=== PATIENT | female | born 2000 | race Caucasian/White ===

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

== ENCOUNTER 2021-03-26 13:37 | Emergency (ER) | payer OTHER ==
[~2021-03-26] VITALS: Ht 167.6 cm; Wt 56.7 kg
== END 2021-03-26 15:32 | disposition home or self-care (01) ==
LOC: ER 13:37
DX: Z04.41 Encounter for examination and observation following alleged adult rape (principal); Z88.0 Allergy status to penicillin
CPT/HCPCS: 99283

== ENCOUNTER → 2021-06-18 | Outpatient (CLI) | payer OTHER ==
[2021-06-19 10:32] LABS: Candida species (DNA Probe) Negative (NEGATIVE); G. vaginalis (DNA Probe) Negative (NEGATIVE); T. vaginalis (DNA Probe) Negative (NEGATIVE)
== END | disposition home or self-care (01) ==
LOC: LAB SHORT 16:57 → LAB 16:57
PROVIDERS: Family Medicine
DX: N76.0 Acute vaginitis (principal)
CPT/HCPCS: 87480; 87510; 87660

== ENCOUNTER 2021-07-28 18:57 | Emergency (ER) | payer OTHER ==
[~2021-07-28] VITALS: Ht 167.6 cm; Wt 56.7 kg
== END 2021-07-28 23:03 | disposition home or self-care (01) ==
LOC: ER 18:57
DX: G43.909 Migraine, unspecified, not intractable, without status migrainosus (principal); Z88.0 Allergy status to penicillin; Z79.899 Other long term (current) drug therapy
CPT/HCPCS: 96374; 96375; 99283-25; J0780; J1200; J1885; J2405; J7030

== ENCOUNTER 2021-11-16 15:03 | Emergency (ER) | payer OTHER ==
[~2021-11-16] VITALS: Ht 167.6 cm; Wt 56.7 kg
[~2021-11-16 15:03] MED LIST changes: +ONDA4 PO
[2021-11-16 16:48] LABS: Source, Urine Clean Catch
[2021-11-16 16:59] LABS: BASOPHILS ABSOLUTE AUTO 0.03 K/mm3 (0.00-0.23); BASOPHILS PERCENT AUTO 0 % (0-2); EOSINOPHILS ABSOLUTE AUTO 0.14 K/mm3 (0.00-0.68); EOSINOPHILS PERCENT AUTO 1 % (0-6); Hematocrit 40.8 % (33.0-51.0); Hemoglobin 13.9 g/dL (11.5-16.0); IMMATURE GRAN ABSOLUTE AUTO 0.07 K/mm3 (0.00-0.10); IMMATURE GRAN PERCENT AUTO 1 % (0-1); LYMPHOCYTES ABSOLUTE AUTO 1.73 K/mm3 (0.84-5.20); LYMPHOCYTES PERCENT AUTO 13 % (21-46); MONOCYTES ABSOLUTE AUTO 1.58 K/mm3 (0.16-1.47); MONOCYTES PERCENT AUTO 12 % (4-13); Mean Corpuscular HGB Conc 34.1 g/dL (31.5-36.5); Mean Corpuscular Volume 88 fL (80-100); Mean Platelet Volume 9.9 fL (9.1-12.4); NEUTROPHILS ABSOLUTE AUTO 9.39 K/mm3 (1.96-9.15); NEUTROPHILS PERCENT AUTO 73 % (41-73); Platelet Count 261 K/mm3 (150-400); RDW Coefficient Variation 11.8 % (11.7-14.2); RDW Standard Deviation 37.8 fL (35.1-46.3); Red Blood Cell Count 4.64 M/mm3 (3.80-5.20); White Blood Cell Count 12.94 K/mm3 (4.00-11.30)
[2021-11-16 17:01] LABS: Appearance, Urine Clear (Clear); Bilirubin, Urine Neg (Neg); Blood, Urine Neg (Neg); Color, Urine Yellow (P-Yellow); Glucose Qualitative, Urine Neg (Neg); Ketones, Urine Neg (Neg); Leukocyte Esterase, Urine Neg (Neg); Nitrite, Urine Neg (Neg); Protein, Urine Neg (Neg); Urobilinogen, Urine NORM (Normal)
[2021-11-16 17:46] LABS: Alanine Aminotransfer (ALT/SGP 26 U/L (12-78); Albumin, Blood 3.9 g/dL (3.4-5.0); Albumin/Globulin Ratio 1.1 (0.8-1.8); Alk Phos 65 U/L (45-116); Anion Gap 6 mmol/L (6-16); Aspartate Aminotrans (AST/SGOT 16 U/L (12-37); Bilirubin, Total 1.1 mg/dL (0.1-1.0); Blood Urea Nitrogen 6 mg/dL (8-21); Bun/Creatinine Ratio 9.1 (12.0-20.0); CO2, Blood 24 mmol/L (21-32); Calcium, Blood 9.6 mg/dL (8.5-10.1); Chloride, Blood 105 mmol/L (98-108); Creatinine, Blood 0.66 mg/dL (0.40-1.00); Globulin, Blood 3.7 g/dL (2.2-4.0); Glomerular Filtration Rate >60 (60-); Glucose, Blood 88 mg/dL (70-99); Potassium, Blood 3.6 mmol/L (3.5-5.5); Sodium, Blood 135 mmol/L (136-145); Total Protein, Blood 7.6 g/dL (6.4-8.2)
[2021-11-16 18:49] LABS: Influenza A, PCR NEGATIVE (NEGATIVE); Influenza B, PCR NEGATIVE (NEGATIVE); Resp Syncytial Virus, PCR NEGATIVE (NEGATIVE); SARS-Cov-2 (COVID-19) PCR, MMC NEGATIVE (NEGATIVE)
[2021-11-16] MEDS ORDERED: AZIT250 PO (20:26)
[2021-11-16] MEDS ORDERED: TRAM50 PO (20:28)
== END 2021-11-16 20:58 | disposition home or self-care (01) ==
LOC: ER 15:03
PROVIDERS: Physician Assistant
DX: J18.9 Pneumonia, unspecified organism (principal); Z88.0 Allergy status to penicillin; Z88.8 Allergy status to other drugs, medicaments and biological substances; Z20.822 Contact with and (suspected) exposure to COVID-19
CPT/HCPCS: 0241U; 36415; 80053; 81003; 83690; 84145; 85025; 96374; 96375; 99284-25; A9270; J1885; J2405; J7030

== ENCOUNTER → 2022-01-14 | Outpatient (CLI) | payer OTHER ==
[~2022-01-14] MED LIST changes: +AZIT250 PO; +TRAM50 PO
[2022-01-15 09:43] LABS: BASOPHILS ABSOLUTE AUTO 0.04 K/mm3 (0.00-0.23); BASOPHILS PERCENT AUTO 1 % (0-2); EOSINOPHILS PERCENT AUTO 7 % (0-6); Hematocrit 38.4 % (33.0-51.0); Hemoglobin 12.6 g/dL (11.5-16.0); IMMATURE GRAN ABSOLUTE AUTO 0.03 K/mm3 (0.00-0.10); IMMATURE GRAN PERCENT AUTO 1 % (0-1); LYMPHOCYTES ABSOLUTE AUTO 2.62 K/mm3 (0.84-5.20); LYMPHOCYTES PERCENT AUTO 43 % (21-46); MONOCYTES ABSOLUTE AUTO 0.85 K/mm3 (0.16-1.47); MONOCYTES PERCENT AUTO 14 % (4-13); Mean Corpuscular HGB 29.9 pg (26.0-34.0); Mean Corpuscular HGB Conc 32.8 g/dL (31.5-36.5); Mean Corpuscular Volume 91 fL (80-100); Mean Platelet Volume 10.8 fL (9.1-12.4); NEUTROPHILS ABSOLUTE AUTO 2.15 K/mm3 (1.96-9.15); NEUTROPHILS PERCENT AUTO 35 % (41-73); Platelet Count 216 K/mm3 (150-400); RDW Coefficient Variation 12.4 % (11.7-14.2); RDW Standard Deviation 41.7 fL (35.1-46.3); Red Blood Cell Count 4.22 M/mm3 (3.80-5.20); White Blood Cell Count 6.09 K/mm3 (4.00-11.30)
[2022-01-15 09:54] LABS: Alanine Aminotransfer (ALT/SGP 22 U/L (12-78); Albumin, Blood 3.8 g/dL (3.4-5.0); Albumin/Globulin Ratio 1.1 (0.8-1.8); Alk Phos 51 U/L (50-136); Anion Gap 7 mmol/L (6-16); Aspartate Aminotrans (AST/SGOT 14 U/L (12-37); Bilirubin, Total 0.5 mg/dL (0.1-1.0); Blood Urea Nitrogen 10 mg/dL (8-24); Bun/Creatinine Ratio 14.7 (12.0-20.0); CO2, Blood 26 mmol/L (21-32); Calcium, Blood 8.7 mg/dL (8.5-10.1); Chloride, Blood 107 mmol/L (98-108); Creatinine, Blood 0.68 mg/dL (0.40-1.00); Globulin, Blood 3.5 g/dL (2.2-4.0); Glomerular Filtration Rate >60 (60-); Glucose, Blood 85 mg/dL (70-99); Potassium, Blood 4.4 mmol/L (3.5-5.5); Sodium, Blood 140 mmol/L (136-145); Total Protein, Blood 7.3 g/dL (6.4-8.2)
== END | disposition home or self-care (01) ==
LOC: LAB SHORT 16:30
PROVIDERS: Nurse Practitioner Family
DX: F32.9 Major depressive disorder, single episode, unspecified (principal)
CPT/HCPCS: 80053; 85025

== ENCOUNTER → 2022-02-15 | Outpatient (CLI) | payer OTHER ==
[2022-02-15 17:56] LABS: BASOPHILS ABSOLUTE AUTO 0.01 K/mm3 (0.00-0.23); BASOPHILS PERCENT AUTO 0 % (0-2); EOSINOPHILS ABSOLUTE AUTO 0.14 K/mm3 (0.00-0.68); EOSINOPHILS PERCENT AUTO 2 % (0-6); Hematocrit 41.1 % (33.0-51.0); Hemoglobin 13.8 g/dL (11.5-16.0); IMMATURE GRAN ABSOLUTE AUTO 0.02 K/mm3 (0.00-0.10); IMMATURE GRAN PERCENT AUTO 0 % (0-1); LYMPHOCYTES ABSOLUTE AUTO 2.66 K/mm3 (0.84-5.20); LYMPHOCYTES PERCENT AUTO 36 % (21-46); MONOCYTES ABSOLUTE AUTO 0.67 K/mm3 (0.16-1.47); MONOCYTES PERCENT AUTO 9 % (4-13); Mean Corpuscular HGB 30.4 pg (26.0-34.0); Mean Corpuscular HGB Conc 33.6 g/dL (31.5-36.5); Mean Corpuscular Volume 91 fL (80-100); Mean Platelet Volume 9.9 fL (9.1-12.4); NEUTROPHILS ABSOLUTE AUTO 3.81 K/mm3 (1.96-9.15); NEUTROPHILS PERCENT AUTO 52 % (41-73); Platelet Count 260 K/mm3 (150-400); RDW Coefficient Variation 11.9 % (11.7-14.2); RDW Standard Deviation 39.3 fL (35.1-46.3); Red Blood Cell Count 4.54 M/mm3 (3.80-5.20); White Blood Cell Count 7.31 K/mm3 (4.00-11.30)
[2022-02-15 18:18] LABS: Anion Gap 9 mmol/L (6-16); Blood Urea Nitrogen 10 mg/dL (8-24); Bun/Creatinine Ratio 12.7 (12.0-20.0); CO2, Blood 27 mmol/L (21-32); Calcium, Blood 9.1 mg/dL (8.5-10.1); Chloride, Blood 102 mmol/L (98-108); Creatinine, Blood 0.79 mg/dL (0.40-1.00); Glomerular Filtration Rate >60 (60-); Glucose, Blood 75 mg/dL (70-99); Potassium, Blood 3.9 mmol/L (3.5-5.5); Sodium, Blood 138 mmol/L (136-145); Thyroid Stimulating Hormone 1.206 uIU/mL (0.360-4.800)
== END | disposition home or self-care (01) ==
LOC: LAB 17:49 → LAB SHORT 17:49
PROVIDERS: Physician Assistant Surgical
DX: E86.0 Dehydration (principal); R53.83 Other fatigue
CPT/HCPCS: 80048; 84443; 85025

== ENCOUNTER → 2022-06-16 | Outpatient (CLI) | payer OTHER ==
[2022-06-19 15:11] LABS: CHLAMYDIA BY NAA Negative (Negative); GONOCOCCUS BY NAA Negative (Negative); TRICH VAG BY NAA Negative (Negative)
== END | disposition home or self-care (01) ==
LOC: LAB SHORT 15:21 → LAB 15:21
PROVIDERS: Physician Assistant Medical
DX: Z20.9 Contact with and (suspected) exposure to unspecified communicable disease (principal)
CPT/HCPCS: 87491; 87591; 87661

== ENCOUNTER → 2022-09-02 | Outpatient (CLI) | payer OTHER ==
[2022-09-03 10:59] LABS: Candida species (DNA Probe) Negative (NEGATIVE); G. vaginalis (DNA Probe) Negative (NEGATIVE); T. vaginalis (DNA Probe) Negative (NEGATIVE)
[2022-09-04 01:11] LABS: CHLAMYDIA TRACHOMATIS, NAA Negative (Negative)
== END | disposition home or self-care (01) ==
LOC: LAB SHORT 16:53 → LAB 16:53
PROVIDERS: Obstetrics & Gynecology
DX: N89.8 Other specified noninflammatory disorders of vagina (principal)
CPT/HCPCS: 87480; 87491; 87510; 87591; 87660

== ENCOUNTER → 2022-12-16 | Outpatient (CLI) | payer OTHER ==
[2022-12-17 10:13] LABS: T. vaginalis (DNA Probe) Negative (NEGATIVE)
[2022-12-17 10:14] LABS: Candida species (DNA Probe) Negative (NEGATIVE); G. vaginalis (DNA Probe) Positive (NEGATIVE)
== END | disposition home or self-care (01) ==
LOC: LAB SHORT 18:20 → LAB 18:20
PROVIDERS: Family Medicine
DX: N92.5 Other specified irregular menstruation (principal); N89.8 Other specified noninflammatory disorders of vagina
CPT/HCPCS: 84702; 87480; 87510; 87660

== ENCOUNTER → 2023-02-07 | Outpatient (CLI) | payer OTHER ==
[2023-02-07 17:32] LABS: Source, Urine Voided
[2023-02-07 19:29] LABS: Bacteria Few /hpf; Red Blood Cells, Urine 0-2 /hpf (0-2); Squamous Epithelial Cells Rare /hpf (Few); White Blood Cells, Urine 0-2 /hpf (0-5)
[2023-02-08 13:40] LABS: Candida species (DNA Probe) Negative (NEGATIVE); G. vaginalis (DNA Probe) Negative (NEGATIVE); T. vaginalis (DNA Probe) Negative (NEGATIVE)
== END | disposition home or self-care (01) ==
LOC: LAB 17:31 → LAB SHORT 17:31
PROVIDERS: Family Medicine
DX: R10.2 Pelvic and perineal pain (principal)
CPT/HCPCS: 81015; 87480; 87510; 87660

== ENCOUNTER → 2023-04-25 | Outpatient (CLI) | payer OTHER ==
[2023-04-25 19:54] LABS: Hematocrit 41.7 % (33.0-51.0); Hemoglobin 13.9 g/dL (11.5-16.0); Mean Corpuscular HGB 29.7 pg (26.0-34.0); Mean Corpuscular HGB Conc 33.3 g/dL (31.5-36.5); Mean Corpuscular Volume 89 fL (80-100); Mean Platelet Volume 10.6 fL (9.1-12.4); Platelet Count 260 K/mm3 (150-400); RDW Standard Deviation 39.2 fL (35.1-46.3); Red Blood Cell Count 4.68 M/mm3 (3.80-5.20); White Blood Cell Count 7.07 K/mm3 (4.00-11.30)
[2023-04-25 20:16] LABS: Percent Saturation 37.3 % (15.0-50.0)
[2023-04-25 20:31] LABS: Follicle Stimulating Hormone 1.9 mIU/ml; Free Thyroxine 1.01 ng/dL (0.70-1.60); Progesterone 8.79 ng/mL; Prolactin 10.1 ng/mL; Thyroid Stimulating Hormone 1.41 uIU/mL (0.360-4.800)
[2023-04-28 07:08] LABS: HIV AB/P24 AG SCREEN Non Reactive (Non Reactive)
== END | disposition home or self-care (01) ==
LOC: LAB SHORT 19:05 → LAB 19:05
PROVIDERS: Nurse Practitioner Family
DX: T14.8XXA Other injury of unspecified body region, initial encounter (principal); N92.6 Irregular menstruation, unspecified; D50.9 Iron deficiency anemia, unspecified
CPT/HCPCS: 82728; 83001; 83540; 83550; 84144; 84146; 84439; 84443; 85027; 86803; 87389

== ENCOUNTER → 2023-05-26 | Outpatient (CLI) | payer OTHER ==
[2023-05-27 11:35] LABS: T. vaginalis (DNA Probe) Negative (NEGATIVE)
[2023-05-27 11:36] LABS: Candida species (DNA Probe) Negative (NEGATIVE); G. vaginalis (DNA Probe) Negative (NEGATIVE)
== END | disposition home or self-care (01) ==
LOC: LAB SHORT 16:51 → LAB 16:51
PROVIDERS: Registered Nurse Community Health
DX: N89.8 Other specified noninflammatory disorders of vagina (principal); R30.9 Painful micturition, unspecified
CPT/HCPCS: 87077; 87086; 87186; 87480; 87510; 87660

== ENCOUNTER → 2023-06-09 | Outpatient (CLI) | payer OTHER ==
[2023-06-09 17:53] LABS: Source, Urine Clean Catch
[2023-06-09 19:44] LABS: Appearance, Urine Clear (Clear); Bilirubin, Urine Neg (Neg); Blood, Urine Neg (Neg); Color, Urine Yellow (P-Yellow); Glucose Qualitative, Urine Neg (Neg); Ketones, Urine Neg (Neg); Leukocyte Esterase, Urine Neg (Neg); Nitrite, Urine Neg (Neg); Protein, Urine Neg (Neg); Specific Gravity, Urine 1.015 (1.003-1.022); Urobilinogen, Urine NORM (Normal)
[2023-06-10 11:21] LABS: Candida species (DNA Probe) Negative (NEGATIVE); G. vaginalis (DNA Probe) Positive (NEGATIVE); T. vaginalis (DNA Probe) Negative (NEGATIVE)
== END | disposition home or self-care (01) ==
LOC: LAB 17:51 → LAB SHORT 17:51
PROVIDERS: Family Medicine
DX: N89.8 Other specified noninflammatory disorders of vagina (principal); R35.0 Frequency of micturition
CPT/HCPCS: 81003; 87086; 87480; 87510; 87660

== ENCOUNTER → 2023-07-08 | Outpatient (CLI) | payer OTHER ==
[2023-07-09 08:00] LABS: Candida species (DNA Probe) Negative (NEGATIVE); G. vaginalis (DNA Probe) Positive (NEGATIVE); T. vaginalis (DNA Probe) Negative (NEGATIVE)
== END ==
LOC: LAB SHORT 16:20 → LAB 16:20
PROVIDERS: Registered Nurse Community Health
DX: R30.0 Dysuria (principal)
CPT/HCPCS: 87086; 87480; 87510; 87660

== ENCOUNTER → 2023-08-01 | Outpatient (CLI) | payer OTHER ==
[2023-08-02 11:03] LABS: Candida species (DNA Probe) Negative (NEGATIVE); G. vaginalis (DNA Probe) Positive (NEGATIVE); T. vaginalis (DNA Probe) Negative (NEGATIVE)
== END ==
LOC: LAB 12:47 → LAB SHORT 12:47
PROVIDERS: Family Medicine
DX: R51.9 Headache, unspecified (principal)
CPT/HCPCS: 87480; 87510; 87660

== ENCOUNTER → 2023-09-27 | Outpatient (CLI) | payer OTHER | END | disposition home or self-care (01) | LOC: LAB SHORT 14:04 → LAB 14:04 | DX: Z33.1 Pregnant state, incidental (principal) | CPT/HCPCS: 84702 ==

== ENCOUNTER 2023-10-06 23:29 | Emergency (ER) | payer OTHER ==
[~2023-10-06] VITALS: Ht 167.6 cm; Wt 62.1 kg
[2023-10-07 02:21] LABS: BASOPHILS ABSOLUTE AUTO 0.04 K/mm3 (0.00-0.23); BASOPHILS PERCENT AUTO 0 % (0-2); EOSINOPHILS ABSOLUTE AUTO 0.17 K/mm3 (0.00-0.68); EOSINOPHILS PERCENT AUTO 1 % (0-6); Hematocrit 36.6 % (33.0-51.0); Hemoglobin 12.5 g/dL (11.5-16.0); IMMATURE GRAN ABSOLUTE AUTO 0.04 K/mm3 (0.00-0.10); IMMATURE GRAN PERCENT AUTO 0 % (0-1); LYMPHOCYTES ABSOLUTE AUTO 2.78 K/mm3 (0.84-5.20); LYMPHOCYTES PERCENT AUTO 22 % (21-46); MONOCYTES ABSOLUTE AUTO 1.02 K/mm3 (0.16-1.47); MONOCYTES PERCENT AUTO 8 % (4-13); Mean Corpuscular HGB 30.4 pg (26.0-34.0); Mean Corpuscular HGB Conc 34.2 g/dL (31.5-36.5); Mean Corpuscular Volume 89 fL (80-100); Mean Platelet Volume 10.1 fL (9.1-12.4); NEUTROPHILS ABSOLUTE AUTO 8.47 K/mm3 (1.96-9.15); NEUTROPHILS PERCENT AUTO 68 % (41-73); Platelet Count 216 K/mm3 (150-400); RDW Coefficient Variation 11.6 % (11.7-14.2); RDW Standard Deviation 37.1 fL (35.1-46.3); Red Blood Cell Count 4.11 M/mm3 (3.80-5.20); White Blood Cell Count 12.52 K/mm3 (4.00-11.30)
[2023-10-07 02:53] LABS: Albumin, Blood 3.9 g/dL (3.4-5.0); Albumin/Globulin Ratio 1.3 (0.8-1.8); Bilirubin, Total 0.4 mg/dL (0.1-1.0); Bun/Creatinine Ratio 10.8 (12.0-20.0); Calcium, Blood 8.7 mg/dL (8.5-10.1); Creatinine, Blood 0.65 mg/dL (0.40-1.00); Globulin, Blood 2.9 g/dL (2.2-4.0); Potassium, Blood 3.3 mmol/L (3.5-5.5); Total Protein, Blood 6.8 g/dL (6.4-8.2)
[2023-10-07 03:45] VITALS: BP 105/65
== END 2023-10-07 04:09 | disposition home or self-care (01) ==
LOC: ER 23:29
PROVIDERS: Emergency Medicine
DX: O21.0 Mild hyperemesis gravidarum (principal); O99.281 Endocrine, nutritional and metabolic diseases complicating pregnancy, first trimester; E87.6 Hypokalemia; O99.511 Diseases of the respiratory system complicating pregnancy, first trimester; J45.909 Unspecified asthma, uncomplicated; O99.351 Diseases of the nervous system complicating pregnancy, first trimester; G43.909 Migraine, unspecified, not intractable, without status migrainosus; Z3A.01 Less than 8 weeks gestation of pregnancy; Z88.0 Allergy status to penicillin
CPT/HCPCS: 80053; 83690; 85025; 96361; 96374; 99284-25; A9270; J2405; J7042

== ENCOUNTER → 2023-10-17 | Outpatient (CLI) | payer OTHER ==
[2023-10-17 18:31] LABS: Source, Urine Clean Catch
[2023-10-17 20:26] LABS: Bilirubin, Urine Neg (Neg); Blood, Urine Neg (Neg); Glucose Qualitative, Urine Neg (Neg); Ketones, Urine Neg (Neg); Leukocyte Esterase, Urine Neg (Neg); Nitrite, Urine Neg (Neg); Protein, Urine 1+ (Neg); Urobilinogen, Urine NORM (Normal)
[2023-10-17 20:33] LABS: Appearance, Urine Hazy (Clear); Color, Urine Yellow (P-Yellow)
[2023-10-17 20:34] LABS: Amorphous Heavy (0-Heavy); Bacteria Few /hpf; Red Blood Cells, Urine Not Seen /hpf (0-2); Squamous Epithelial Cells Few /hpf (Few); White Blood Cells, Urine Not Seen /hpf (0-5)
[2023-10-17 20:43] LABS: BASOPHILS ABSOLUTE AUTO 0.03 K/mm3 (0.00-0.23); BASOPHILS PERCENT AUTO 0 % (0-2); EOSINOPHILS ABSOLUTE AUTO 0.07 K/mm3 (0.00-0.68); EOSINOPHILS PERCENT AUTO 1 % (0-6); Hematocrit 40.3 % (33.0-51.0); Hemoglobin 13.8 g/dL (11.5-16.0); IMMATURE GRAN ABSOLUTE AUTO 0.02 K/mm3 (0.00-0.10); IMMATURE GRAN PERCENT AUTO 0 % (0-1); LYMPHOCYTES ABSOLUTE AUTO 1.93 K/mm3 (0.84-5.20); LYMPHOCYTES PERCENT AUTO 24 % (21-46); MONOCYTES PERCENT AUTO 9 % (4-13); Mean Corpuscular HGB 30.8 pg (26.0-34.0); Mean Corpuscular HGB Conc 34.2 g/dL (31.5-36.5); Mean Corpuscular Volume 90 fL (80-100); Mean Platelet Volume 10.1 fL (9.1-12.4); NEUTROPHILS ABSOLUTE AUTO 5.24 K/mm3 (1.96-9.15); NEUTROPHILS PERCENT AUTO 65 % (41-73); Platelet Count 251 K/mm3 (150-400); RDW Coefficient Variation 11.6 % (11.7-14.2); RDW Standard Deviation 38.1 fL (35.1-46.3); Red Blood Cell Count 4.48 M/mm3 (3.80-5.20); White Blood Cell Count 7.99 K/mm3 (4.00-11.30)
[2023-10-18 11:07] LABS: Candida species (DNA Probe) Positive (NEGATIVE); G. vaginalis (DNA Probe) Negative (NEGATIVE); T. vaginalis (DNA Probe) Negative (NEGATIVE)
[2023-10-20 19:12] LABS: HIV 1,2 COMBO ANTIGEN/ANTIBODY Negative (Negative)
[2023-10-21 09:57] LABS: HCV QNT BY NAAT (IU/ML) Not Detected; HCV QNT BY NAAT (LOG IU/ML) Not Detected; HCV QNT BY NAAT INTERP Not Detected (Not Detected)
[2023-10-21 12:44] LABS: HEPATITIS B SURFACE ANTIGEN Negative (Negative)
== END ==
LOC: LAB 18:28 → LAB SHORT 18:28
PROVIDERS: Registered Nurse Community Health
DX: Z34.91 Encounter for supervision of normal pregnancy, unspecified, first trimester (principal); Z3A.00 Weeks of gestation of pregnancy not specified; R30.9 Painful micturition, unspecified; N89.8 Other specified noninflammatory disorders of vagina
CPT/HCPCS: 81001; 84443; 85025; 86592; 86762; 86850; 86900; 86901; 87086; 87340; 87389; 87480; 87510; 87522; 87660

== ENCOUNTER → 2023-10-21 | Outpatient (CLI) | payer OTHER ==
[~2023-10-21] MED LIST changes: +IMITREX100 MG PO
== END ==
LOC: LAB 18:41 → LAB SHORT 18:41
DX: E86.0 Dehydration (principal)
CPT/HCPCS: 87086

== ENCOUNTER → 2023-10-24 | Outpatient (CLI) | payer OTHER ==
[2023-10-26 18:03] LABS: APTIMA MEDIA TYPE Urine; C. TRACHOMATIS BY TMA Negative (Negative); N. GONORRHOEAE BY TMA Negative (Negative); SPECIMEN SOURCE Urine
== END ==
LOC: LAB SHORT 11:56 → LAB 11:56 → ATC 10-25 14:02 → LAB SHORT 10-25 14:02 → ATC 10-25 22:46
PROVIDERS: Family Medicine
DX: Z34.01 Encounter for supervision of normal first pregnancy, first trimester (principal)
CPT/HCPCS: 87491; 87591

== ENCOUNTER 2023-10-25 02:32 | Day surgery (SDC) | payer OTHER ==
[~2023-10-25 02:32] MED LIST changes: -IMITREX100 MG PO
[2023-10-25 14:38] VITALS: BP 88/69
[2023-10-25] MEDS ORDERED: IMITREX100 MG PO (14:39)
== END 2023-10-25 15:37 | disposition home or self-care (01) ==
LOC: ATC 02:32
DX: O21.9 Vomiting of pregnancy, unspecified (principal)
CPT/HCPCS: 96361; 96374; J2405; J7120

== ENCOUNTER 2023-11-01 01:31 | Day surgery (SDC) | payer OTHER ==
[~2023-11-01 01:31] MED LIST changes: +IMITREX100 MG PO
[2023-11-01 14:25] VITALS: BP 106/63
--- NOTE | 2023-11-01 14:43 | NUR ---
PT WAS ONLY GIVEN 4MG OF IV ZOFRAN SHE TOOK 4MG SL AT NOON.
== END 2023-11-01 15:23 | disposition home or self-care (01) ==
LOC: ATC 01:31
DX: O21.9 Vomiting of pregnancy, unspecified (principal); Z3A.00 Weeks of gestation of pregnancy not specified
CPT/HCPCS: 96361; 96374; J2405; J7120

== ENCOUNTER 2023-11-04 00:29 | Day surgery (SDC) | payer OTHER ==
[2023-11-04 16:30] VITALS: BP 116/85
== END 2023-11-04 17:34 | disposition home or self-care (01) ==
LOC: ATC 00:29
DX: O21.9 Vomiting of pregnancy, unspecified (principal)
CPT/HCPCS: 96361; 96374; J2405; J7120

== ENCOUNTER 2023-11-06 04:07 | Day surgery (SDC) | payer OTHER ==
[2023-11-06 16:04] VITALS: BP 108/55
== END 2023-11-06 17:11 | disposition home or self-care (01) ==
LOC: ATC 04:07
DX: O21.9 Vomiting of pregnancy, unspecified (principal); Z3A.00 Weeks of gestation of pregnancy not specified; O99.519 Diseases of the respiratory system complicating pregnancy, unspecified trimester; J45.909 Unspecified asthma, uncomplicated; Z88.0 Allergy status to penicillin; Z88.8 Allergy status to other drugs, medicaments and biological substances; Z79.899 Other long term (current) drug therapy
CPT/HCPCS: 96361; 96374; J2405; J7120

== ENCOUNTER 2023-11-08 04:32 | Day surgery (SDC) | payer OTHER ==
--- NOTE | 2023-11-08 12:14 | NUR ---
NO CALL, NO SHOW. ATTEMPTED TO REACH PATIENT WITHOUT SUCCESS.
== END 2023-11-08 23:14 | disposition home or self-care (01) ==
LOC: ATC 04:32
DX: O21.9 Vomiting of pregnancy, unspecified (principal); O99.340 Other mental disorders complicating pregnancy, unspecified trimester; F32.9 Major depressive disorder, single episode, unspecified; Z79.899 Other long term (current) drug therapy

== ENCOUNTER 2023-11-12 04:42 | Day surgery (SDC) | payer OTHER ==
[2023-11-12 16:18] VITALS: BP 125/55
== END 2023-11-12 17:24 | disposition home or self-care (01) ==
LOC: ATC 04:42
DX: O21.9 Vomiting of pregnancy, unspecified (principal); Z3A.00 Weeks of gestation of pregnancy not specified
CPT/HCPCS: 96361; 96374; J2405; J7120

== ENCOUNTER 2023-11-14 03:18 | Day surgery (SDC) | payer OTHER ==
[2023-11-14 14:13] VITALS: BP 102/66
== END 2023-11-14 15:18 | disposition home or self-care (01) ==
LOC: ATC 03:18
DX: O21.9 Vomiting of pregnancy, unspecified (principal)
CPT/HCPCS: 96361; 96374; J2405; J7120

== ENCOUNTER 2023-11-18 13:28 | Day surgery (SDC) | payer OTHER ==
[2023-11-18 16:36] VITALS: BP 114/67
== END 2023-11-18 17:34 | disposition home or self-care (01) ==
LOC: ATC 13:28
DX: O21.9 Vomiting of pregnancy, unspecified (principal)
CPT/HCPCS: 96361; 96374; J2405; J7120

== ENCOUNTER 2023-11-20 05:07 | Day surgery (SDC) | payer OTHER ==
[2023-11-20 17:14] VITALS: BP 96/76
== END 2023-11-20 18:15 | disposition home or self-care (01) ==
LOC: ATC 05:07
DX: O21.9 Vomiting of pregnancy, unspecified (principal); Z3A.00 Weeks of gestation of pregnancy not specified; Z88.0 Allergy status to penicillin; Z88.8 Allergy status to other drugs, medicaments and biological substances; Z79.899 Other long term (current) drug therapy
CPT/HCPCS: 96361; 96374; J2405; J7120

== ENCOUNTER 2023-11-25 00:32 | Day surgery (SDC) | payer OTHER ==
[2023-11-25 17:04] VITALS: BP 104/66
== END 2023-11-25 18:00 | disposition home or self-care (01) ==
LOC: ATC 00:32
DX: O21.9 Vomiting of pregnancy, unspecified (principal); Z3A.00 Weeks of gestation of pregnancy not specified; Z88.0 Allergy status to penicillin
CPT/HCPCS: 96361; 96374; J2405; J7120

== ENCOUNTER 2023-11-29 02:43 | Day surgery (SDC) | payer OTHER ==
[2023-11-29 13:10] VITALS: BP 110/67
== END 2023-11-29 14:22 | disposition home or self-care (01) ==
LOC: ATC 02:43
DX: O21.9 Vomiting of pregnancy, unspecified (principal); Z3A.00 Weeks of gestation of pregnancy not specified
CPT/HCPCS: 96361; 96374; J2405; J7120

== ENCOUNTER 2023-12-03 02:02 | Day surgery (SDC) | payer OTHER ==
[2023-12-03 16:16] VITALS: BP 98/60
== END 2023-12-03 17:22 | disposition home or self-care (01) ==
LOC: ATC 02:02
DX: O21.9 Vomiting of pregnancy, unspecified (principal)
CPT/HCPCS: 96361; 96374; J2405; J7120

== ENCOUNTER 2023-12-05 01:07 | Day surgery (SDC) | payer OTHER ==
[2023-12-05 16:36] VITALS: BP 115/68
== END 2023-12-05 17:38 | disposition home or self-care (01) ==
LOC: ATC 01:07
DX: O21.9 Vomiting of pregnancy, unspecified (principal); Z3A.00 Weeks of gestation of pregnancy not specified; Z88.0 Allergy status to penicillin; Z88.8 Allergy status to other drugs, medicaments and biological substances
CPT/HCPCS: 96361; 96374; J2405; J7120

== ENCOUNTER 2023-12-07 03:52 | Day surgery (SDC) | payer OTHER ==
[2023-12-07 11:09] VITALS: BP 103/60
== END 2023-12-07 12:20 | disposition home or self-care (01) ==
LOC: ATC 03:52
DX: O21.9 Vomiting of pregnancy, unspecified (principal)
CPT/HCPCS: 96361; 96374; J2405; J7120

== ENCOUNTER 2023-12-10 02:41 | Day surgery (SDC) | payer OTHER ==
[2023-12-10 16:51] VITALS: BP 115/62
== END 2023-12-10 17:34 | disposition home or self-care (01) ==
LOC: ATC 02:41
DX: O21.9 Vomiting of pregnancy, unspecified (principal); Z3A.00 Weeks of gestation of pregnancy not specified; Z88.0 Allergy status to penicillin; Z88.8 Allergy status to other drugs, medicaments and biological substances; Z79.899 Other long term (current) drug therapy
CPT/HCPCS: 96361; 96374; J2405; J7120

== ENCOUNTER → 2023-12-12 | Outpatient (CLI) | payer OTHER | END | disposition home or self-care (01) | LOC: LAB SHORT 18:20 → LAB 18:20 | DX: N36.8 Other specified disorders of urethra (principal) | CPT/HCPCS: 87086 ==

== ENCOUNTER 2023-12-17 02:42 | Day surgery (SDC) | payer OTHER ==
[2023-12-17 16:12] VITALS: BP 100/47
== END 2023-12-17 17:18 | disposition home or self-care (01) ==
LOC: ATC 02:42
DX: O21.9 Vomiting of pregnancy, unspecified (principal); Z3A.00 Weeks of gestation of pregnancy not specified
CPT/HCPCS: 96361; 96374; J2405; J7120

== ENCOUNTER 2023-12-19 01:35 | Day surgery (SDC) | payer OTHER ==
[2023-12-19] MEDS ORDERED: Lactated Ringer's 1,000 ML IV SCH (07:00)
[2023-12-19] MEDS ORDERED: Ondansetron HCl 2 MG / ML 2ML Vial IV SCH (07:00)
[2023-12-19 13:58] VITALS: BP 99/62
== END 2023-12-19 14:50 | disposition home or self-care (01) ==
LOC: ATC 01:35
DX: O21.9 Vomiting of pregnancy, unspecified (principal); O99.891 Other specified diseases and conditions complicating pregnancy; R30.9 Painful micturition, unspecified; Z86.19 Personal history of other infectious and parasitic diseases; Z3A.00 Weeks of gestation of pregnancy not specified; Z88.0 Allergy status to penicillin; Z88.8 Allergy status to other drugs, medicaments and biological substances
CPT/HCPCS: 87086; 87480; 87510; 87660; 96361; 96374; J2405; J7120

== ENCOUNTER → 2023-12-19 | Outpatient (CLI) | payer OTHER ==
[2023-12-19 16:01] LABS: Candida species (DNA Probe) Negative (NEGATIVE); G. vaginalis (DNA Probe) Negative (NEGATIVE); T. vaginalis (DNA Probe) Negative (NEGATIVE)
== END ==
LOC: LAB SHORT 12:19 → LAB 12:19
PROVIDERS: Family Medicine
DX: R30.9 Painful micturition, unspecified (principal); Z86.19 Personal history of other infectious and parasitic diseases
CPT/HCPCS: 87086; 87480; 87510; 87660

== ENCOUNTER 2023-12-26 00:41 | Day surgery (SDC) | payer OTHER ==
[2023-12-26] MEDS ORDERED: Ondansetron HCl 2 MG / ML 2ML Vial IV SCH (07:00)
[2023-12-26] MEDS ORDERED: Lactated Ringer's 1,000 ML IV SCH (07:00)
[2023-12-26 16:38] VITALS: BP 130/77
== END 2023-12-26 17:45 | disposition home or self-care (01) ==
LOC: ATC 00:41
DX: O21.9 Vomiting of pregnancy, unspecified (principal); Z3A.00 Weeks of gestation of pregnancy not specified; Z88.0 Allergy status to penicillin; Z88.8 Allergy status to other drugs, medicaments and biological substances
CPT/HCPCS: 96361; 96374; J2405; J7120

== ENCOUNTER 2023-12-28 11:12 | Day surgery (SDC) | payer OTHER ==
[~2023-12-28 11:12] MED LIST changes: +Lactated Ringer's 1,000 ML IV SCH; +Ondansetron HCl 2 MG / ML 2ML Vial IV SCH; +Ondansetron HCl 2 MG / ML 2ML Vial ONE
[2023-12-28] MEDS ORDERED: Ondansetron HCl 2 MG / ML 2ML Vial IV SCH (11:20)
== END 2023-12-28 12:36 | disposition home or self-care (01) ==
LOC: ATC 11:12
DX: O21.9 Vomiting of pregnancy, unspecified (principal)
CPT/HCPCS: 96361; 96374; J2405; J7120

== ENCOUNTER 2024-01-01 00:55 | Day surgery (SDC) | payer OTHER ==
[~2024-01-01 00:55] MED LIST changes: -Lactated Ringer's 1,000 ML IV SCH; -Ondansetron HCl 2 MG / ML 2ML Vial IV SCH; -Ondansetron HCl 2 MG / ML 2ML Vial ONE
[2024-01-01] MEDS ORDERED: Ondansetron HCl 2 MG / ML 2ML Vial IV SCH (06:55)
[2024-01-01] MEDS ORDERED: Lactated Ringer's 1,000 ML IV SCH (06:55)
--- NOTE | 2024-01-01 11:12 | NUR ---
PATIENT CALLED AND TESTED POSITIVE FOR COVID AND DOESNT WANT TO COME IN TODAY FOR HER APPT
== END 2024-01-01 22:43 | disposition home or self-care (01) ==
LOC: ATC 00:55
DX: O21.9 Vomiting of pregnancy, unspecified (principal); Z3A.00 Weeks of gestation of pregnancy not specified; Z88.0 Allergy status to penicillin; Z88.8 Allergy status to other drugs, medicaments and biological substances

== ENCOUNTER 2024-01-03 08:00 | Day surgery (SDC) | payer OTHER ==
[~2024-01-03 08:00] MED LIST changes: +Lactated Ringer's 1,000 ML IV SCH; +Ondansetron HCl 2 MG / ML 2ML Vial IV SCH
[2024-01-03 12:00] VITALS: BP 105/71
--- NOTE | 2024-01-03 12:25 | NUR ---
PT IN COVID ISOLATION TODAY.
== END 2024-01-03 23:59 | disposition home or self-care (01) ==
LOC: ATC 08:00
DX: O21.9 Vomiting of pregnancy, unspecified (principal); Z88.0 Allergy status to penicillin; Z88.1 Allergy status to other antibiotic agents; Z88.8 Allergy status to other drugs, medicaments and biological substances
CPT/HCPCS: 96361; 96374; J2405; J7120

== ENCOUNTER 2024-01-07 05:12 | Day surgery (SDC) | payer OTHER ==
[~2024-01-07 05:12] MED LIST changes: -Lactated Ringer's 1,000 ML IV SCH; -Ondansetron HCl 2 MG / ML 2ML Vial IV SCH
[2024-01-07] MEDS ORDERED: Ondansetron HCl 2 MG / ML 2ML Vial IV SCH (07:00)
[2024-01-07] MEDS ORDERED: Lactated Ringer's 1,000 ML IV SCH (07:00)
[2024-01-07 16:30] VITALS: BP 111/67
== END 2024-01-07 17:28 | disposition home or self-care (01) ==
LOC: ATC 05:12
DX: O21.9 Vomiting of pregnancy, unspecified (principal); O99.341 Other mental disorders complicating pregnancy, first trimester; F32.9 Major depressive disorder, single episode, unspecified; Z88.1 Allergy status to other antibiotic agents; Z88.0 Allergy status to penicillin; Z88.8 Allergy status to other drugs, medicaments and biological substances
CPT/HCPCS: 96361; 96374; J2405; J7120

== ENCOUNTER 2024-01-09 04:57 | Day surgery (SDC) | payer OTHER ==
[2024-01-09] MEDS ORDERED: Lactated Ringer's 1,000 ML IV SCH (06:55)
[2024-01-09] MEDS ORDERED: Ondansetron HCl 2 MG / ML 2ML Vial IV SCH (06:55)
[2024-01-09 16:20] VITALS: BP 114/73
== END 2024-01-09 17:26 | disposition home or self-care (01) ==
LOC: ATC 04:57
DX: O21.9 Vomiting of pregnancy, unspecified (principal); Z88.0 Allergy status to penicillin; Z88.8 Allergy status to other drugs, medicaments and biological substances; Z3A.00 Weeks of gestation of pregnancy not specified
CPT/HCPCS: 96361; 96374; J2405; J7120

== ENCOUNTER 2024-01-12 16:01 | Day surgery (SDC) | payer OTHER ==
[2024-01-12] MEDS ORDERED: Lactated Ringer's 1,000 ML IV SCH (16:30)
[2024-01-12] MEDS ORDERED: Ondansetron HCl 2 MG / ML 2ML Vial IV SCH (16:30)
[2024-01-12 17:07] VITALS: BP 98/51
== END 2024-01-12 17:52 | disposition home or self-care (01) ==
LOC: ATC 16:01
DX: O21.9 Vomiting of pregnancy, unspecified (principal); Z88.0 Allergy status to penicillin; Z88.2 Allergy status to sulfonamides; Z88.8 Allergy status to other drugs, medicaments and biological substances; Z79.899 Other long term (current) drug therapy
CPT/HCPCS: 96374; J2405; J7120

== ENCOUNTER 2024-03-05 03:58 | Day surgery (SDC) | payer OTHER ==
[2024-03-05] MEDS ORDERED: Lactated Ringer's 1,000 ML IV SCH (07:10)
[2024-03-05] MEDS ORDERED: Ondansetron HCl 2 MG / ML 2ML Vial IV SCH (07:10)
[2024-03-05 16:02] VITALS: BP 117/53
== END 2024-03-05 17:14 | disposition home or self-care (01) ==
LOC: ATC 03:58
DX: O21.9 Vomiting of pregnancy, unspecified (principal); O99.519 Diseases of the respiratory system complicating pregnancy, unspecified trimester; J45.909 Unspecified asthma, uncomplicated; Z3A.00 Weeks of gestation of pregnancy not specified; Z88.0 Allergy status to penicillin; Z88.8 Allergy status to other drugs, medicaments and biological substances; Z79.899 Other long term (current) drug therapy
CPT/HCPCS: 96361; 96374; J2405; J7120

== ENCOUNTER 2024-03-12 01:35 | Day surgery (SDC) | payer OTHER ==
[2024-03-12] MEDS ORDERED: Lactated Ringer's 1,000 ML IV SCH (06:45)
[2024-03-12] MEDS ORDERED: Ondansetron HCl 2 MG / ML 2ML Vial IV SCH (06:45)
[2024-03-12 15:23] VITALS: BP 114/68; BP 130/77
== END 2024-03-12 16:30 | disposition home or self-care (01) ==
LOC: ATC 01:35
DX: O21.9 Vomiting of pregnancy, unspecified (principal); Z88.0 Allergy status to penicillin
CPT/HCPCS: 96361; 96374; J2405; J7120

== ENCOUNTER 2024-03-14 00:22 | Day surgery (SDC) | payer OTHER ==
[2024-03-14] MEDS ORDERED: Ondansetron HCl 2 MG / ML 2ML Vial IV SCH (06:55)
[2024-03-14] MEDS ORDERED: Lactated Ringer's 1,000 ML IV SCH (06:55)
[2024-03-14 13:05] VITALS: BP 117/62
== END 2024-03-14 14:14 | disposition home or self-care (01) ==
LOC: ATC 00:22
DX: O21.9 Vomiting of pregnancy, unspecified (principal); Z88.0 Allergy status to penicillin; Z88.8 Allergy status to other drugs, medicaments and biological substances; Z79.899 Other long term (current) drug therapy
CPT/HCPCS: 96361; 96374; J2405; J7120

== ENCOUNTER 2024-03-16 02:31 | Day surgery (SDC) | payer OTHER ==
[2024-03-16] MEDS ORDERED: Lactated Ringer's 1,000 ML IV SCH (07:15)
[2024-03-16] MEDS ORDERED: Ondansetron HCl 2 MG / ML 2ML Vial IV SCH (07:15)
[2024-03-16 16:31] VITALS: BP 117/80
== END 2024-03-16 17:28 | disposition home or self-care (01) ==
LOC: ATC 02:31
DX: O21.9 Vomiting of pregnancy, unspecified (principal); O99.519 Diseases of the respiratory system complicating pregnancy, unspecified trimester; J45.909 Unspecified asthma, uncomplicated; Z3A.00 Weeks of gestation of pregnancy not specified; Z88.0 Allergy status to penicillin; Z88.8 Allergy status to other drugs, medicaments and biological substances; Z79.899 Other long term (current) drug therapy
CPT/HCPCS: 96361; 96374; J2405; J7120

== ENCOUNTER 2024-03-20 02:30 | Day surgery (SDC) | payer OTHER ==
[2024-03-20] MEDS ORDERED: Ondansetron HCl 2 MG / ML 2ML Vial IV SCH (06:50)
[2024-03-20] MEDS ORDERED: Lactated Ringer's 1,000 ML IV SCH ×2 (07:00→19:00)
[2024-03-20 13:48] VITALS: BP 114/74
== END 2024-03-20 14:50 | disposition home or self-care (01) ==
LOC: ATC 02:30
DX: O21.9 Vomiting of pregnancy, unspecified (principal); Z88.0 Allergy status to penicillin; Z88.8 Allergy status to other drugs, medicaments and biological substances; J45.909 Unspecified asthma, uncomplicated; F32.A Depression, unspecified
CPT/HCPCS: 96361; 96374; J2405; J7120

== ENCOUNTER → 2024-04-28 | Outpatient (CLI) | payer OTHER ==
[~2024-04-28] MED LIST changes: +PRENATAL TABLE1 EAC2 PO
== END | disposition home or self-care (01) ==
LOC: LAB 11:11 → LAB SHORT 11:11
DX: O09.93 Supervision of high risk pregnancy, unspecified, third trimester (principal)
CPT/HCPCS: 87081; 87150

== ENCOUNTER 2024-04-30 11:25 | Inpatient (IN) | payer OTHER ==
[2024-04-30] VITALS (10 sets, daily range): BP systolic 107–129; BP diastolic 65–82
[~2024-04-30] VITALS: Ht 167.6 cm; Wt 75.0 kg
[~2024-04-30 11:25] MED LIST changes: -PRENATAL TABLE1 EAC2 PO
[2024-04-30] MEDS ORDERED: Lactated Ringer's 1,000 ML IV PRN (13:35)
[2024-04-30] MEDS ORDERED: Oxytocin 10 Unit / ML Vial IM SCH (13:35)
[2024-04-30] MEDS ORDERED: Misoprostol 200 MCG Tab PR SCH (13:35)
[2024-04-30] MEDS ORDERED: Bupivacaine HCl 2.5 MG/ML 10ML P/F Injection XX SCH (13:35)
[2024-04-30] MEDS ORDERED: LR Oxytocin 20 Units 1,000 ML IV SCH (13:35)
[2024-04-30] MEDS ORDERED: Methylergonovine Maleate 0.2MG / ML 1ML Amp IM SCH (13:35)
[2024-04-30] MEDS ORDERED: Castor Oil 59.146 ML BTL TOP SCH (13:35)
[2024-04-30] MEDS ORDERED: Bupivacaine 0.5% HCl 5 MG/ML 30MLVIAL XX SCH (13:35)
[2024-04-30] MEDS ORDERED: Lidocaine HCl 1% 30 ML SDV XX SCH (13:35)
[2024-04-30] MEDS ORDERED: FentaNYL 2mcg/ml-Bup 0.1% Epd 250 ML EPI PRN (13:45)
[2024-04-30] MEDS ORDERED: Lactated Ringer's 1,000 ML IV SCH ×2 (13:45)
[2024-04-30] MEDS ORDERED: ePHEDrine Sulfate 50 MG/ML 1ML Injection XX PRN (13:45)
[2024-04-30] MEDS ORDERED: PRENATAL TABLE1 EAC2 PO (14:25)
[2024-04-30] MEDS ORDERED: ALBU90OI INH (14:25)
[2024-04-30 14:26] LABS: BASOPHILS ABSOLUTE AUTO 0.04 K/mm3 (0.00-0.23); BASOPHILS PERCENT AUTO 0 % (0-2); EOSINOPHILS ABSOLUTE AUTO 0.08 K/mm3 (0.00-0.68); EOSINOPHILS PERCENT AUTO 1 % (0-6); Hematocrit 36.2 % (33.0-51.0); Hemoglobin 12.4 g/dL (11.5-16.0); IMMATURE GRAN ABSOLUTE AUTO 0.12 K/mm3 (0.00-0.10); IMMATURE GRAN PERCENT AUTO 1 % (0-1); LYMPHOCYTES ABSOLUTE AUTO 1.69 K/mm3 (0.84-5.20); LYMPHOCYTES PERCENT AUTO 17 % (21-46); MONOCYTES ABSOLUTE AUTO 1.03 K/mm3 (0.16-1.47); MONOCYTES PERCENT AUTO 10 % (4-13); Mean Corpuscular HGB 31.5 pg (26.0-34.0); Mean Corpuscular HGB Conc 34.3 g/dL (31.5-36.5); Mean Corpuscular Volume 92 fL (80-100); Mean Platelet Volume 10.1 fL (9.1-12.4); NEUTROPHILS ABSOLUTE AUTO 7.09 K/mm3 (1.96-9.15); NEUTROPHILS PERCENT AUTO 71 % (41-73); Platelet Count 193 K/mm3 (150-400); RDW Coefficient Variation 13.2 % (11.7-14.2); RDW Standard Deviation 45.1 fL (35.1-46.3); Red Blood Cell Count 3.94 M/mm3 (3.80-5.20); White Blood Cell Count 10.05 K/mm3 (4.00-11.30)
[2024-04-30] MEDS ORDERED: Misoprostol 25 MCG Tab VAG PRN (18:00)
[2024-04-30] MEDS ORDERED: Ondansetron 4 MG SoluTab SL ONE (21:15)
[2024-05-01] VITALS (44 sets, daily range): BP systolic 76–167; BP diastolic 42–83
[2024-05-01] MEDS ORDERED: Lactated Ringer's 1,000 ML IV PRN (00:10)
[2024-05-01] MEDS ORDERED: Calcium Carbonate 500 MG Tab Chew PO PRN ×2 (00:10→00:15)
[2024-05-01] MEDS ORDERED: LR Oxytocin 20 Units 1,000 ML IV SCH (00:10)
[2024-05-01] MEDS ORDERED: FentaNYL Citrate 50 MCG/ML 2 ML Injection IV ONE ×2 (04:40→06:40)
[2024-05-01] MEDS ORDERED: FentaNYL Citrate 50 MCG/ML 2 ML Injection ONE (06:25)
[2024-05-01] MEDS ORDERED: DiphenhydrAMINE HCl 50 MG/ML 1ML Vial IV PRN ×2 (07:15→14:15)
[2024-05-01] MEDS ORDERED: Ondansetron HCl 2 MG / ML 2ML Vial IV PRN (07:15)
[2024-05-01] MEDS ORDERED: ePHEDrine Sulfate 50 MG/ML 1ML Injection IV PRN (07:15)
[2024-05-01] MEDS ORDERED: Metoclopramide HCl 5MG / ML 2ML Vial IV PRN ×2 (07:15→14:15)
[2024-05-01] MEDS ORDERED: Naloxone HCl 0.4MG / ML 1ML Vial IV PRN (07:15)
[2024-05-01] MEDS ORDERED: Benzocaine Topical Anesthetic Spray 60GM TOP ONE (11:45)
[2024-05-01] MEDS ORDERED: Lidocaine 2% Jelly Uro-Jet TOP ONE (11:45)
[2024-05-01] MEDS ORDERED: LR Oxytocin 20 Units 1,000 ML IV PRN (13:55)
[2024-05-01] MEDS ORDERED: Benzocaine Topical Anesthetic Spray 60GM TOP PRN (13:55)
[2024-05-01] MEDS ORDERED: Lactated Ringer's 1,000 ML IV SCH (13:55)
[2024-05-01] MEDS ORDERED: Acetaminophen 500 MG Tab PO PRN (13:55)
[2024-05-01] MEDS ORDERED: Ketorolac Tromethamine 30mg Vial IV PRN (14:00)
[2024-05-01] MEDS ORDERED: Methylergonovine Maleate 0.2MG / ML 1ML Amp IM PRN (14:00)
[2024-05-01] MEDS ORDERED: Witch Hazel/Glycerin PADS TOP PRN (14:00)
[2024-05-01] MEDS ORDERED: Ibuprofen 400 MG Tab PO PRN (14:00)
[2024-05-01] MEDS ORDERED: Ketorolac Tromethamine 30mg Vial IV ONE (14:00)
[2024-05-02 04:12] VITALS: BP 113/77
[2024-05-02 07:58] VITALS: BP 116/76
[2024-05-02] MEDS ORDERED: Prenatal Vit/FE Fumarate/FA 1 Tab PO SCH (09:00)
[2024-05-02 13:57] VITALS: BP 112/86
== END 2024-05-02 15:07 | disposition home or self-care (01) | DRG 806 ==
LOC: OBS 11:25 → BC 11:25 → OBS 13:27 → BC 13:29
PROVIDERS: ADMIT Family Medicine
PROC: 10E0XZZ Delivery of Products of Conception, External Approach (ICD-10-PCS; principal; 2024-05-01)
PROC: 3E0R3BZ Introduction of Anesthetic Agent into Spinal Canal, Percutaneous Approach (ICD-10-PCS; 2024-05-01)
PROC: 00HU33Z Insertion of Infusion Device into Spinal Canal, Percutaneous Approach (ICD-10-PCS; 2024-05-01)
DX: O42.02 Full-term premature rupture of membranes, onset of labor within 24 hours of rupture (principal); O99.354 Diseases of the nervous system complicating childbirth; Z37.0 Single live birth; Z3A.37 37 weeks gestation of pregnancy; Z90.89 Acquired absence of other organs; Z88.1 Allergy status to other antibiotic agents; Z88.0 Allergy status to penicillin; Z88.8 Allergy status to other drugs, medicaments and biological substances; O99.52 Diseases of the respiratory system complicating childbirth; G43.909 Migraine, unspecified, not intractable, without status migrainosus; J45.909 Unspecified asthma, uncomplicated; O09.93 Supervision of high risk pregnancy, unspecified, third trimester
CPT/HCPCS: 36415; 51702; 59025; 85025; 86850; 86900; 86901; 87081; 87150; 87210; A9270; J1885; J2590; J3010; J7120

== ENCOUNTER → 2024-09-21 | Outpatient (CLI) | payer OTHER ==
[~2024-09-21] MED LIST changes: +PRENATAL TABLE1 EAC2 PO
[2024-09-22 12:34] LABS: Bacterial Vaginosis PCR Negative (NEGATIVE); Candida Group, PCR NOT DETECTED (NOT DETECT); Candida glabrata-krusei, PCR NOT DETECTED (NOT DETECT)
== END ==
LOC: LAB SHORT 16:22 → LAB 16:22
PROVIDERS: Registered Nurse Community Health
DX: N89.8 Other specified noninflammatory disorders of vagina (principal); R35.0 Frequency of micturition
CPT/HCPCS: 87086; 87481; 87661; 87801

== ENCOUNTER → 2025-07-25 | Outpatient (CLI) | payer OTHER ==
[2025-07-25 14:27] LABS: Source, Urine Voided
[2025-07-25 16:00] LABS: BASOPHILS ABSOLUTE AUTO 0.03 K/mm3 (0.00-0.23); BASOPHILS PERCENT AUTO 1 % (0-2); EOSINOPHILS ABSOLUTE AUTO 0.24 K/mm3 (0.00-0.68); EOSINOPHILS PERCENT AUTO 4 % (0-6); Hematocrit 40.5 % (33.0-51.0); Hemoglobin 13.0 g/dL (11.5-16.0); IMMATURE GRAN ABSOLUTE AUTO 0.01 K/mm3 (0.00-0.10); IMMATURE GRAN PERCENT AUTO 0 % (0-1); LYMPHOCYTES ABSOLUTE AUTO 2.44 K/mm3 (0.84-5.20); LYMPHOCYTES PERCENT AUTO 38 % (21-46); MONOCYTES ABSOLUTE AUTO 0.63 K/mm3 (0.16-1.47); MONOCYTES PERCENT AUTO 10 % (4-13); Mean Corpuscular HGB Conc 32.1 g/dL (31.5-36.5); Mean Corpuscular Volume 94 fL (80-100); NEUTROPHILS ABSOLUTE AUTO 3.09 K/mm3 (1.96-9.15); NEUTROPHILS PERCENT AUTO 48 % (41-73); NRBC ABSOLUTE 0.00 K/mm3 (0.00-0.02); NRBC Auto 0.0 /100 WBC (0.0-0.2); Platelet Count 225 K/mm3 (150-400); RDW Coefficient Variation 12.6 % (11.7-14.2); RDW Standard Deviation 43.4 fL (35.1-46.3)
[2025-07-25 16:29] LABS: Bilirubin, Urine Neg (Neg); Glucose Qualitative, Urine Neg (Neg); Ketones, Urine Neg (Neg); Leukocyte Esterase, Urine Neg (Neg); Protein, Urine Neg (Neg); Specific Gravity, Urine 1.015 (1.003-1.022); Urobilinogen, Urine NORM (Normal)
[2025-07-25 16:42] LABS: U Amphetamine Screen Not Detected; U Barbituate Screen Not Detected; U Benzodiazapine Screen Not Detected; U Buprenorphine Screen Not Detected; U Cannabinoids Screen DETECTED; U Cocaine Screen Not Detected; U Methadone Screen Not Detected; U Methamphetamine Screen Not Detected; U Opiates Screen Not Detected; U Oxycodone Screen Not Detected; U Phencyclidine Screen Not Detected
[2025-07-25 16:57] LABS: Color, Urine Pale Yellow (P-Yellow)
[2025-07-27 08:19] LABS: HIV 1,2 COMBO ANTIGEN/ANTIBODY Negative (Negative)
[2025-07-27 10:30] LABS: HEPATITIS C AB CIA INTERP Negative (Negative); HEPATITIS C ANTIBODY CIA INDEX <0.02 IV
[2025-07-29 08:52] LABS: 11-NOR-9-CARBOXY-THC,URN,QUANT <15 ng/mL
== END ==
LOC: LAB SHORT 08:40 → LAB 08:40
PROVIDERS: Registered Nurse Community Health
DX: Z34.81 Encounter for supervision of other normal pregnancy, first trimester (principal)
CPT/HCPCS: 81003; 84443; 84702; 86803; 87086; 87340; 87389; G0480

== ENCOUNTER → 2025-11-16 | Outpatient (CLI) | payer OTHER | END | disposition home or self-care (01) | LOC: LAB SHORT 09:45 → LAB 09:45 | DX: R39.9 Unspecified symptoms and signs involving the genitourinary system (principal) | CPT/HCPCS: 87086 ==